=== PATIENT | female | born 1990 | race Caucasian/White ===

== ENCOUNTER 2016-11-30 17:08 | Emergency (ER) | payer MEDICAID ==
[~2016-11-30] VITALS: Ht 165 cm; Wt 64.1 kg
[2016-11-30 17:20] VITALS: TEMP 98.8
[2016-11-30 18:14] LABS: BASO # 0.1 (0.0-0.2); BASO % 0.8 % (0.0-2.0); EOS # 0.4 (0.0-0.7); EOS % 5.6 % (0-4.0); GRAN # 3.8 (1.4-6.5); GRAN % 52.9 % (42.2-75.2); HEMATOCRIT 40.8 % (37.0-47.0); LYMPH # 2.3 (1.2-3.4); LYMPH % 32.5 % (20.0-51.0); MEAN CELL VOLUME 91 fl (80.0-100.0); MEAN CORPUSCULAR HEMOGLOBIN 31 pg (27.0-31.0); MEAN CORPUSCULAR HGB CONC 34 g/dl (33.0-37.0); MEAN PLATELET VOLUME 9.6 fl (7.4-10.4); MONO # 0.6 (0.1-0.6); MONO % 8.1 % (1.7-9.3); PLATELET COUNT 193 K/mm3 (130-400); RED BLOOD COUNT 4.47 M/mm3 (4.10-5.30); REDCELL DISTRIBUTION WIDTH-CV 11.8 % (11.5-14.5); WHITE BLOOD COUNT 7.2 K/mm3 (4.8-10.8)
[2016-11-30 18:24] LABS: ADJUSTED CALCIUM 8.6 mg/dL (8.4-10.2); ALBUMIN 4.5 gm/dL (3.5-5.0); BILIRUBIN,TOTAL 0.6 mg/dL (0.0-1.0); CREATININE, serum 0.68 mg/dL (0.52-1.25); TOTAL PROTEIN 7.1 gm/dL (6.4-8.2)
[2016-11-30] MEDS ORDERED: PROTONIX 40MG T40 MG PO (18:58)
[2016-11-30] MEDS ORDERED: CARAFATE 1GM1 G PO (18:58)
[2016-11-30 19:25] VITALS: BP 125/79; PULSE 83
== END 2016-11-30 19:29 | disposition home or self-care (01) ==
LOC: COL.ER 17:08
PROVIDERS: Emergency Medicine
DX: K29.70 Gastritis, unspecified, without bleeding (principal); F17.210 Nicotine dependence, cigarettes, uncomplicated

== ENCOUNTER 2022-03-28 20:55 | Emergency (ER) | payer MEDICAID ==
[~2022-03-28] VITALS: Ht 193 cm; Wt 80.5 kg
[~2022-03-28 20:55] MED LIST: CARAFATE 1GM1 G PO; PROTONIX 40MG T40 MG PO
[2022-03-28 20:57] VITALS: TEMP 98.6
[2022-03-28 21:19] LABS: BASO # 0.1 K/mm3 (0.0-0.2); BASO % 0.8 % (0.0-2.0); EOS # 0.2 K/mm3 (0.0-0.7); EOS % 3.9 % (0.0-4.0); GRAN # 2.7 K/mm3 (1.4-6.5); GRAN % 46.4 % (42.2-75.2); HEMATOCRIT 39.6 % (37.0-47.0); HEMOGLOBIN 13.4 g/dl (12.5-16.0); LYMPH # 2.3 K/mm3 (1.2-3.4); LYMPH % 39.4 % (20.0-51.0); MEAN CELL VOLUME 94 fl (80.0-100.0); MEAN CORPUSCULAR HEMOGLOBIN 32 pg (27-31); MEAN CORPUSCULAR HGB CONC 34 g/dl (33.0-37.0); MEAN PLATELET VOLUME 9.8 fl (7.4-10.4); MONO # 0.6 K/mm3 (0.1-0.6); MONO % 9.3 % (1.7-9.3); PLATELET COUNT 187 K/mm3 (130-400); RED BLOOD COUNT 4.22 M/mm3 (4.10-5.30); REDCELL DISTRIBUTION WIDTH-CV 11.5 % (11.5-14.5)
[2022-03-28 21:58] LABS: ALANINE AMINOTRANSFERASE 42 U/L (0-55); ALBUMIN 3.2 gm/dL (3.5-5.0); ALKALINE PHOSPHATASE 66 U/L (40-150); ANION GAP 9 mmol/L (7-16); AST,SGOT 19 U/L (5-34); BILIRUBIN,TOTAL 0.2 mg/dL (0.2-1.2); BLOOD UREA NITROGEN 15 mg/dL (7-19); CALCIUM 7.8 mg/dL (8.4-10.2); CARBON DIOXIDE 18 mmol/L (22-29); CHLORIDE 114 mmol/L (98-107); CREATININE, serum 0.84 mg/dL (0.57-1.11); GLUCOSE 104 mg/dL (70-99); POTASSIUM 3.7 mmol/L (3.5-4.5); SODIUM 141 mmol/L (136-145); TOTAL PROTEIN 5.3 gm/dL (6.2-8.1)
[2022-03-28 21:59] LABS: ALCOHOL(ethanol),MEDICAL < 10 mg/dL (0-10)
[2022-03-28 22:24] LABS: COLLECTION METHOD CLEAN CATCH
[2022-03-28 22:43] LABS: URINE APPEARANCE Clear (CLEAR/HAZY); URINE BLOOD Negative (NEGATIVE); URINE COLOR Yellow (YELLOW); URINE GLUCOSE Negative (NEGATIVE); URINE KETONE TRACE (NEGATIVE); URINE NITRATE Negative (NEGATIVE); URINE PROTEIN(semi-quant) TRACE (NEGATIVE); URINE UROBILINOGEN 0.2 E.U/dL (0.2-1.0)
[2022-03-28 22:44] LABS: MUCOUS Present (NOT PRESENT); URINE BACTERIA None Seen /hpf (NONE SEEN)
[2022-03-28 22:58] VITALS: BP 116/79; PULSE 70
== END 2022-03-28 23:00 | disposition home or self-care (01) ==
LOC: COL.ER 20:55
PROVIDERS: Emergency Medicine
DX: R55 Syncope and collapse (principal); E86.0 Dehydration; Z28.311 Partially vaccinated for COVID-19

== ENCOUNTER 2022-04-22 12:50 | Emergency (ER) | payer MEDICAID ==
[~2022-04-22] VITALS: Ht 167.6 cm; Wt 79.5 kg
[2022-04-22 12:57] VITALS: TEMP 98.6
[2022-04-22 16:01] VITALS: BP 120/61; PULSE 80
== END 2022-04-22 16:11 | disposition home or self-care (01) ==
LOC: COL.ER 12:50
DX: R51.9 Headache, unspecified (principal); Z28.311 Partially vaccinated for COVID-19
CPT/HCPCS: J0780; J1885